=== PATIENT | male | born 2000 | race African-American/Black ===

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

== ENCOUNTER 2020-02-01 09:45 | Emergency (ER) | payer MEDICAID ==
[~2020-02-01] VITALS: Ht 177.8 cm; Wt 154.2 kg
[~2020-02-01 09:45] MED LIST: DEBROX15 M1 BOTH EARS; IBUPROFEN600 MG ORAL
[2020-02-01 10:00] VITALS: BP 153/77
[2020-02-01 10:03] VITALS: BP 145/79
[2020-02-01] MEDS ORDERED: CIPRODEX OTIC7.5 M1 LEFT EAR (10:06)
--- NOTE | 2020-02-01 10:14 | Emergency Room Report ---
History of Present Illness General Chief Complaint: Eye Problems Source: Patient Present Illness HPI Patient is a 19-year-old male past medical history of obesity who presents to the ER complaining of left ear ringing and pain. Patient states that he was here in August 2019 complaining of bilateral ear ringing and pain. He states that they gave him medicine for earwax which helped his symptoms but that he started having ringing and pain in his left ear starting in September. Patient denies any fever or chills. Patient complains of pain from his ear that goes to his eye. He denies having any rashes. When I asked about the headache that he described in triage she said that it was the pain from his ear going towards his eye. He denies any visual changes. Patient states that he worse glasses but that his vision is corrected with them and is unchanged. He denies any neck stiffness. Patient denies any hearing loss. Allergies: Coded Allergies: No Known Allergies (Unverified , 08/26/19) COVID-19 Screening Contact w/high risk pt: No Recent Travel to affected area: No Experienced COVID-19 symptoms?: No COVID-19 Testing performed [employer]: No Patient History Past Medical History: other - obesity Past Surgical History: none Social History: Denies: smoking, alcohol use, drug use Nursing Documentation-[facility] Past Medical History: No Stated History Review of Systems All Other Systems: negative except mentioned in HPI Physical Exam Vital Signs Date Time Temp Pulse Resp B/P (MAP) Pulse Ox O2 Delivery O2 Flow Rate FiO2 02/01/20 09:48 97.5 94 18 153/77 (102) 99 Room Air Sp02 EP Interpretation: reviewed, normal General Appearance: no apparent distress, alert, GCS 15, non-toxic, obese Head: normocephalic, atraumatic Eyes: bilateral eye normal inspection, bilateral eye PERRL, bilateral eye fluoroscene uptake ENT: hearing grossly normal, EOM grossly intact, normal pharynx, no angioedema , other - L external auditory canal redness, ?excoriation? TM clear, scant cerumen Neck: full range of motion, supple/symm/no masses Respiratory: chest non-tender, lungs clear Cardiovascular #1: regular rate, rhythm, no edema Gastrointestinal: normal bowel sounds, non tender, soft, non-distended, no guarding, no rebound Rectal: deferred Musculoskeletal: normal range of motion, gait/station normal, non-tender Neurologic: alert, motor strength/tone normal, oriented x3, sensory intact, responsive, speech normal Psychiatric: judgement/insight normal, memory normal, mood/affect normal, no suicidal/homicidal ideation Skin: no rash Lymphatic: no adenopathy Medical Decision Making Diagnostic Impression: Primary Impression: Otitis externa ER Course Patient has acute otitis externa. Due to the distribution of pain patient could have had herpes zoster and now has postherpetic pain. He did not describe any rash to me. His symptoms been present for 5 months. I have given him a prescription for Cipro eardrops with steroids. He does not have a primary care physician so I gave him a list of local clinics that he can follow- up that an infection follow-up at. After discussing risks and benefits of further diagnostics, treatment plans, as well as indications for and risks of admission, the patient is agreeable to being discharged home. I have explained that their evaluation and treatment in the emergency department today is an important step towards them achieving better health but that their evaluation today is not intended to replace further evaluation and treatment by a physician in their local clinic. I have explained that while the current findings suggest no immediate life threatening emergency they will require further evaluation and treatment by a physician of their choice in their area. They understand that it will be necessary for them to review the final reports of their ED visit with their clinic physician. We have reviewed indications for return to the Emergency Department. I have explained that additional time may need to pass and/or additional testing as an outpatient may be necessary before a definitive diagnosis can be made. They tell me they are willing to follow up as instructed within the timeframe I recommend. They appear to understand what we discussed. Additionally they understand that if they are unable to be seen by an outpatient physician they are welcome, and in fact should, return to the Emergency Department for a repeat evaluation. The patient is stable at time of discharge. Last Vital Signs Date Time Temp Pulse Resp B/P (MAP) Pulse Ox O2 Delivery O2 Flow Rate FiO2 02/01/20 10:03 97.5 92 18 145/79 100 Room Air Disposition: HOME, SELF-CARE Condition: Stable Scripts Ciprofloxacin Hcl/Dexameth (CIPRODEX OTIC SUSPENSION) 7.5 Ml Drops.susp 4 DROP LEFT EAR TWICE A DAY for 14 Days, DROP Prov: Matilda Choi M.D. 02/01/20 Referrals: [facility]ERRING (PCP) [facility] Patient Instructions: Otitis Externa, [id number] Additional Instructions: The patient was provided with discharge instructions, notified to follow-up with a primary care doctor and or specialist in the next 24-48 hours, and to return to the ED if they have worsening of their symptoms. Please note that this report is being documented using [employer]itick technology. This can lead to erroneous entry secondary to incorrect interpretation by the dictating instrument. Matilda Choi M.D. February 01, 2020 10:14
== END 2020-02-01 10:04 | disposition home or self-care (01) ==
LOC: EMR 10:00
DX: H60.92 Unspecified otitis externa, left ear (principal)
CPT/HCPCS: 99282